=== PATIENT | male | born 1980 | race Two or more races ===

== ENCOUNTER 2024-03-27 00:12 | Emergency (ER) | payer OTHER ==
[~2024-03-27] VITALS: Ht 177.8 cm; Wt 104.3 kg
[2024-03-27] MEDS ORDERED: PANTOPRAZOLE SODIUM 40 MG in 0.9 % SODIUM CHLORIDE 8 ML IV PUSH STA (02:05)
[2024-03-27] MEDS ORDERED: 0.9 % SODIUM CHLORIDE 1,000 ML IV SCH (02:15)
[2024-03-27] MEDS ORDERED: ONDANSETRON HCL 2 MG/ML VIAL IV ONE (02:15)
[2024-03-27] MEDS ORDERED: ONDANSETRON HCL 2 MG/ML VIAL ONE (02:43)
[2024-03-27 04:01] LABS: HEMATOCRIT 28.4 % (39.0-48.0); HEMOGLOBIN 9.5 g/dL (13-16.00); MEAN CORPUSCULAR HEMOGLOBIN 28.7 pg (27.00-32.0); MEAN CORPUSCULAR HGB CONC 33.3 g/dl (32.0-36.0); RED CELL DISTRIBUTION WIDTH 18.4 % (11.5-14.5)
[2024-03-27 04:03] LABS: PLATELET COUNT 72 K/uL (150-450)
[2024-03-27 04:14] LABS: ALBUMIN 3.6 gm/dL (3.4-5.0); BILIRUBIN TOTAL 3.23 mg/dL (0.3-1.2); BILIRUBIN,CONJUGATED 0.7 mg/dL (0.0-0.2); BILIRUBIN,UNCONJUGATED 2.53 mg/dL (0.0-0.6); CALCIUM 8.9 mg/dL (8.5-10.1); CREATININE SERUM 0.66 mg/dL (0.70-1.30); GFR 131.73; GLOBULINA 4.4 G/DL (2.4-3.5); POTASSIUM 3.89 mEq/L (3.5-5.1)
== END 2024-03-27 08:57 | disposition home or self-care (01) ==
LOC: ER 00:14
PROVIDERS: General Practice
DX: K29.70 Gastritis, unspecified, without bleeding (principal); R11.2 Nausea with vomiting, unspecified; K74.60 Unspecified cirrhosis of liver; K44.9 Diaphragmatic hernia without obstruction or gangrene